=== PATIENT | male | born 1970 | race Hispanic/Latino ===

== ENCOUNTER 2017-02-09 14:03 | Emergency (ER) | payer SELFPAY ==
[2017-02-09] MEDS ORDERED: methylPREDNISolone Sod Succ/PF 125 MG/2 ML VIAL ONE (15:02)
[2017-02-09] MEDS ORDERED: Sterile Water 10 ML ONE (15:02)
[2017-02-09] MEDS ORDERED: Ketorolac Tromethamine 30 MG/ML VIAL ONE ×2 (15:02→15:03)
--- NOTE | 2017-02-09 15:21 | RAD ---
THREE VIEWS RIGHT HAND: HISTORY: Right middle finger swelling. FINDINGS: AP, lateral, and oblique views right hand are obtained. Three views right hand demonstrate no evidence of right hand fractures, subluxations, or bony lesion s. An old healed fracture is seen in the distal aspect of the middle phalanx 4th digit right hand. No other acute abnormality is seen. IMPRESSION: No evidence of acute right hand abnormality is seen. The third digit is unremarkable. POS: [facility]
== END 2017-02-09 15:25 | disposition home or self-care (01) ==
LOC: ERS 14:03
DX: M79.89 Other specified soft tissue disorders (principal); I10 Essential (primary) hypertension; E78.5 Hyperlipidemia, unspecified
CPT/HCPCS: 96372; A4216; J1885; J2930

== ENCOUNTER 2024-12-13 01:53 | Emergency (ER) | payer SELFPAY ==
[2024-12-13] MEDS ORDERED: Aspirin Chewable 81 MG TAB ONE (02:32)
[2024-12-13 03:17] LABS: #Basophils Less than 0.03 10x3/uL (0.0-0.2); #Eosinophils 0.10 10x3/uL (0.0-0.7); #Monocytes 0.55 10x3/uL (0.11-0.59); #Neutrophils 4.20 10x3/uL (1.40-6.50); %Basophils 0.3 % (0.0-1.0); %Eosinophils 1.5 % (0.0-10.0); %Lymphocytes 25.6 % (21.0-51.0); %Monocytes 8.4 % (0.0-10.0); %Neutrophils 63.9 % (42.0-75.0); Hematocrit 35.0 % (42.0-52.0); Hemoglobin 12.2 g/dL (14.0-18.0); Mean Corpuscular Hemoglobin 32.1 pg (27.0-31.0); Mean Corpuscular Volume 92.1 fL (78.0-98.0); Platelet Count 149 10x3/uL (130-400); Red Blood Cell (RBC) Count 3.80 mill/uL (4.70-6.10); White Blood Cell (WBC) Count 6.57 10x3/uL (4.8-10.8)
[2024-12-13 03:31] LABS: Acetaminophen Less than 10 mcg/mL (Less than 10); Magnesium 1.8 mg/dL (1.6-2.6); Salicylate Less than 8.0 mg/dL (Less than 8.0)
[2024-12-13 03:34] LABS: Troponin I Less than 0.010 ng/mL (< 0.028)
[2024-12-13 03:44] LABS: ALT (SGPT) 12 U/L (Less than 45); AST (SGOT) 21 U/L (11-34); Albumin 3.4 g/dL (3.1-4.5); Alkaline Phosphatase 87 U/L (40-110); Anion Gap 12 mmol/L (10-20); BUN (Urea Nitrogen) 6 mg/dL (8.4-25.7); Bilirubin, Total 0.5 mg/dL (0.3-1.2); Calc. Creatinine Clearance 0 mL/min (70-130); Calcium 7.4 mg/dL (7.8-10.44); Carbon Dioxide 19 mmol/L (22-29); Chloride 100 mmol/L (98-107); Globulin 2.7 g/dL (2.4-3.5); Glucose 155 mg/dL (70-105); Potassium 3.1 mmol/L (3.5-5.1); Sodium 128 mmol/L (136-145)
[2024-12-13] MEDS ORDERED: Multivitamins, Adult 10 ML, Thiamine HCl 100 MG, Folic Acid 1 MG in Dextrose 5 %-0.45 %... IV SCH (05:00)
[2024-12-13 06:01] LABS: Troponin I Less than 0.010 ng/mL (< 0.028)
== END 2024-12-13 06:33 | disposition home or self-care (01) ==
LOC: ERS 01:53
DX: R07.9 Chest pain, unspecified (principal); F10.129 Alcohol abuse with intoxication, unspecified; E87.6 Hypokalemia; E87.1 Hypo-osmolality and hyponatremia; I10 Essential (primary) hypertension; E78.5 Hyperlipidemia, unspecified
CPT/HCPCS: 36415; 71045; 80053; 80307; 83690; 83735; 84484; 85025; 93005; 94760; 96374; J3411; J7042